=== PATIENT | female | born 1995 | race Caucasian/White ===

== ENCOUNTER → 2017-03-09 | Outpatient (CLI) | payer OTHER | LOC: KOH-I 12:02 | DX: E04.0 Nontoxic diffuse goiter (principal) | CPT/HCPCS: 76536 ==

== ENCOUNTER 2021-10-25 11:05 | Emergency (ER) | payer OTHER ==
[~2021-10-25 11:05] MED LIST: IBUPROFEN600 MG PO
[2021-10-25] MEDS ORDERED: OMNICEF 300 MG300 MG PO (13:16)
== END 2021-10-25 13:40 | disposition home or self-care (01) ==
LOC: ER1 11:05
DX: J06.9 Acute upper respiratory infection, unspecified (principal); N39.0 Urinary tract infection, site not specified; Z20.822 Contact with and (suspected) exposure to COVID-19
CPT/HCPCS: 81001; 87086; 99283; U0002